=== PATIENT | female | born 1950 ===

== ENCOUNTER 2023-04-07 13:42 | Outpatient (OUT) | payer MEDICARE, OTHER, SELFPAY ==
--- NOTE | 2023-04-07 14:02 | XR_ITS ---
[address] [address] Patient Name: ASHELY CORRAL MRN: [id number] date: 1950 Sex: F Assigned Patient Location: [facility] Current Patient Location: [facility] Accession/Order Number: [id number] Exam Date: 04/07/2023 13:56 Report Date: 04/07/2023 20:18 At the request of: SOFYA DANIEL Procedure: XR foot BROOKS min 3V EXAMINATION: XR foot BROOKS min 3V HISTORY: BILATERAL FOOT PAIN COMPARISON: No relevant comparison available. FINDINGS: RIGHT FINDINGS: BONES: No acute fracture or dislocation. Moderate diffuse degenerative changes with joint space narrowing marginal osteophyte formation most significant in the midfoot. Moderate enthesopathic spurring of the calcaneus at the Achilles and plantar insertions SOFT TISSUES: Negative. No visible soft tissue swelling. OTHER: Negative. LEFT FINDINGS: BONES: No acute fracture or dislocation. Moderate degenerative changes most significant in the midfoot. Partial flattening of the plantar arch. Lateral subluxation of the second and third proximal phalanges in relation to the metatarsal heads. Subacute/chronic fracture diaphysis of the fifth proximal phalanx SOFT TISSUES: Negative. No visible soft tissue swelling. OTHER: Negative. IMPRESSION: RIGHT CONCLUSION: Degenerative changes LEFT CONCLUSION: Degenerative changes Electronically authenticated by: SUSANA JANG Date: 04/07/2023 20:18
== END 2023-04-07 13:43 | disposition home or self-care (01) ==
LOC: RAD 13:42
PROVIDERS: Visit Provider Podiatrist Foot & Ankle Surgery
DX: M79.671 Pain in right foot (principal); M79.672 Pain in left foot
CPT/HCPCS: 73630